=== PATIENT | female | born 1940 | race American Indian/Alaskan Native ===

== ENCOUNTER 2022-04-09 08:53 | Outpatient (CLI) | payer MEDICARE ==
--- NOTE | 2022-04-09 13:36 | Ultrasound Report ---
ULTRASOUND BREAST LEFT LIMITED, 04/09/2022 CLINICAL INFORMATION / INDICATION: ABNORMAL MAMMOGRAM R92.8. Patient presents for short interval foll ow-up left breast cysts. TECHNIQUE: Targeted ultrasound evaluation was performed of the area of interest. COMPARISON: Prior mammograms 05/16/2021 and 05/29/2021. The left breast ultrasound dated 05/29/2021 is charlene ble to be loaded, though the report is available for review. FINDINGS: Targeted ultrasound of the upper outer quadrant of the left breast reveals a benign intramammary lymp h node in the 2:00 position located 8 cm in the nipple measuring up to 7 mm. There is a probably linnette gn cluster of cysts in the 2:00 position located 3 cm nipple measuring up to 7 mm. Internal septation s are seen, but there is no internal vascularity. By report, this appears to be unchanged in size com pared with the prior examination. IMPRESSION: 1. A cluster of cysts in the 2:00 left breast appears to be unchanged in size compared with prior exa mination and is considered probably benign. Recommend left breast ultrasound in 6 months to ensure on going stability. Additionally, patient will be due for bilateral mammogram in April 2022. Follow up recommendation: Short term follow up in 6 months. Additionally, patient will be due for anali ateral mammogram in April 2022. BI-RADS Category 3: PROBABLY BENIGN. Followup in 6 months. A normal or "negative" report should not preclude biopsy or follow-up of a clinically suspicious find ing. Signer Name: Enedelia Preston MD Signed: 04/09/2022 1:31 PM Workstation Name: [email or web address]
--- NOTE | 2022-04-09 13:48 | Mammography Report ---
DEXA BONE DENSITY SCAN INDICATION / CLINICAL INFORMATION: Z78.0. 81 years Female COMPARISON: None available. LUMBAR SPINE, L1-L4: - Bone mineral density (BMD) = 0.987 g/cm2. - T-score = -0.5 - Change (%) since most recent prior (if available): None available. LEFT HIP, NECK : - Bone mineral density (BMD) = 0.688 g/cm2. - T-score = -1.5 - Change (%) since most recent prior (if available): None available. IMPRESSION: 1. WHO Classification: Osteopenia. Fracture Risk: Increased. 2. 10-Year Fracture Risk (FRAX) = Major Osteoporotic 5.7% / Hip: 1.2% FRAX generally not reported for patients with normal or osteoporotic BMD, in ywr-gjieuzt-vkupzza ronni ents younger than age 50, or in patients undergoing pharmacotherapy BMD Reporting Guidelines (ISCD, 2015) BMD Reporting in Postmenopausal Women and in Men Age 50 and Older - T-scores are preferred. - The WHO densitometric classification is applicable. BMD Reporting in Females Prior to Menopause and in Males Younger Than Age 50 - Z-scores, not T-scores, are preferred. This is particularly important in children. - A Z-score of -2.0 or lower is defined as below the expected range for age, and a Z-score above -2.0 is within the expected range for age. - Osteoporosis cannot be diagnosed in men under age 50 on the basis of BMD alone. - The WHO diagnostic criteria may be applied to women in the menopausal transition. http://www.iscd.org/official-positions/3729-nbxp-emnmnflb-positions-adult/ Signer Name: Bishop Eckert MD Signed: 04/09/2022 1:43 PM Workstation Name: [email or web address]
--- NOTE | 2022-04-09 16:25 | Vascular Lab Report ---
DUPLEX DOPPLER LOWER EXTREMITY ARTERIAL, RIGHT INDICATION / CLINICAL INFORMATION: I73.9. Peripheral vascular disease. TECHNIQUE: Arterial duplex examination of the right lower extremity performed using B-mode, color aimee w and spectral Doppler assessment. FINDINGS: RIGHT: Common Femoral Artery: PSV 130 cm/sec. Triphasic waveform. Proximal SFA: PSV 115 cm/sec. Triphasic waveform. Mid SFA: PSV 87 cm/sec. Triphasic waveform. Distal SFA: PSV 73 cm/sec. Triphasic waveform. Popliteal Artery: PSV 88 cm/sec. Triphasic waveform. Posterior tibial artery: PSV 58 cm/sec. Biphasic waveform. Dorsalis Pedis Artery: PSV 42 cm/sec. Triphasic waveform. ADDITIONAL FINDINGS: None. RIGHT LEXI: Not calculated. IMPRESSION: 1. No significant right lower extremity peripheral artery disease. Ankle-Brachial Index (LEXI): - Calcified arteries > 1.4 - Normal = 0.9-1.4 - Mild PAD = 0.7-0.89 - Moderate PAD = 0.51-0.69 - Severe PAD < 0.5 Doppler Waveform: - Triphasic is normal. - Biphasic is abnormal if clear transition from triphasic signal along vascular tree. - Monophasic is abnormal. Scribed by: Jeny Ceballos RDMS, DARRIUST, LIUKS Scribed: 04/09/2022 2:16 PM I have reviewed the images, agree with this report, and edited this report as needed. Signer Name: Deo Mejia MD Signed: 04/09/2022 4:21 PM Workstation Name: [id number]
== END 2022-04-09 08:54 | disposition home or self-care (01) ==
LOC: MAMMO 08:53
DX: N60.02 Solitary cyst of left breast (principal); R92.8 Other abnormal and inconclusive findings on diagnostic imaging of breast; I73.9 Peripheral vascular disease, unspecified; M85.89 Other specified disorders of bone density and structure, multiple sites; Z78.0 Asymptomatic menopausal state
CPT/HCPCS: 77080

== ENCOUNTER 2022-04-27 09:03 | Outpatient (CLI) | payer MEDICARE ==
--- NOTE | 2022-04-27 10:09 | Ultrasound Report ---
ULTRASOUND ABDOMEN, COMPLETE INDICATION / CLINICAL INFORMATION: N18.9 CKD. COMPARISON: None available. FINDINGS: PANCREAS: No significant abnormality. ABDOMINAL AORTA: No significant abnormality. IVC: No significant abnormality. LIVER: Heterogeneous GALLBLADDER: No significant abnormality. BILE DUCTS: No significant abnormality. Common bile duct measures 1.5 mm. KIDNEYS: Right: Slightly small measuring 8.9 cm Left: Slightly small measuring 8 cm Echogenic foci in bilateral kidneys. SPLEEN: No significant abnormality. FREE FLUID: None. ADDITIONAL FINDINGS: None. IMPRESSION: 1. Bilateral kidneys are atrophied with small echogenic foci in bilateral kidneys. No hydronephrosis Signer Name: Deo Mejia MD Signed: 04/27/2022 10:04 AM Workstation Name: [id number]
== END 2022-04-27 09:04 | disposition home or self-care (01) ==
LOC: US 09:03
PROVIDERS: ATTEND Nurse Practitioner Family
DX: N26.1 Atrophy of kidney (terminal) (principal); N18.9 Chronic kidney disease, unspecified
CPT/HCPCS: 76700